=== PATIENT | male | born 1955 | race Caucasian/White ===

== ENCOUNTER 2022-08-14 14:11 | Outpatient (REF) | payer OTHER, SELFPAY ==
[2022-08-14 18:38] LABS: Ferritin 186 ng/mL (20-250)
== END 2022-08-14 14:12 | disposition home or self-care (01) ==
LOC: HO.BBR 14:11
PROVIDERS: PCP Pediatrics; Visit Provider Internal Medicine Hematology & Oncology
DX: E83.110 Hereditary hemochromatosis (principal)
CPT/HCPCS: 36415; 82728

== ENCOUNTER 2023-02-16 08:52 | Outpatient (REF) | payer OTHER, SELFPAY ==
[2023-02-16 11:20] LABS: Ferritin 112 ng/mL (20-250)
== END 2023-02-16 08:53 | disposition home or self-care (01) ==
LOC: HO.BBR 08:52
PROVIDERS: PCP Pediatrics; Visit Provider Internal Medicine Hematology & Oncology
DX: E83.110 Hereditary hemochromatosis (principal)
CPT/HCPCS: 36415; 82728

== ENCOUNTER 2023-08-09 14:02 | Outpatient (REF) | payer OTHER, SELFPAY | END 2023-08-09 14:03 | disposition home or self-care (01) | LOC: HO.BBR 14:02 | PROVIDERS: PCP Pediatrics; Visit Provider Internal Medicine Hematology & Oncology | DX: Z13.89 Encounter for screening for other disorder (principal) ==

== ENCOUNTER 2024-02-11 10:06 | Outpatient (REF) | payer OTHER, SELFPAY | END 2024-02-11 10:07 | disposition home or self-care (01) | LOC: HO.BBR 10:06 | PROVIDERS: PCP Pediatrics; Visit Provider Internal Medicine Hematology & Oncology | DX: Z13.89 Encounter for screening for other disorder (principal) ==

== ENCOUNTER 2024-08-10 09:51 | Outpatient (REF) | payer OTHER, SELFPAY | END 2024-08-10 09:52 | disposition home or self-care (01) | LOC: HO.BBR 09:51 | PROVIDERS: PCP Pediatrics; Visit Provider Internal Medicine Hematology & Oncology | DX: Z13.89 Encounter for screening for other disorder (principal) ==

== ENCOUNTER 2025-02-12 09:44 | Outpatient (REF) | payer OTHER, SELFPAY ==
--- OUTSIDE RECORDS SUMMARY | 2025-02-12 11:54 | XMS_ITS | Encounter Summary ---
Author Organization [facility] Address [address] [place] [address] Care Team Providers Care Testing Consultant Name Role Phone Unavailable Primary Care Provider Unavailabl e Encounter Details Date Type Department Care Team (Latest Contact Info) Description 11/22/2020 Abstract [facility] CONVERSIONS Dental, Provider, DDS Social History Tobacco Use Types Packs/Day Years Used Date Smoking Tobacco: Never Assessed Sex and Gender Information Value Date Recorded Sex Assigned at Male 03/23/2022 10:23 AM EDT Legal Sex Male 10:23 AM EDT Gender Identity Male 03/23/2022 10:23 AM EDT Sexual Orientation Choose not to disclose 2021 10:23 AM EDT documented as of this encounter Plan of Treatment Not on file documented as of this encounter Visit Diagnoses Not on filedocumented in this encounter
--- OUTSIDE RECORDS SUMMARY | 2025-02-12 11:54 | XMS_ITS | Clinical Summary ---
Author Organization [employer] Address [address] [place] [address] Care Team Providers Care Keller Machine Operator Name Role Phone Unavailable Primary Care Provider Unavailabl e Social History Tobacco Use Types Packs/Day Years Used Date Smoking Tobacco: Never Assessed Sex and Gender Information Value Date Recorded Sex Assigned at Male 03/23/2022 10:23 AM EDT Legal Sex Male 10:23 AM EDT Gender Identity Male 03/23/2022 10:23 AM EDT Sexual Orientation Choose not to disclose 2021 10:23 AM EDT Plan of Treatment Health Maintenance Due Date Last Done Comments CT Colonography 1955 Colonoscopy 1955 Colorectal Cancer Screening 1955 Depression Screening 1955 FIT DNA/Cologuard 1955 FIT 1955 FOBT 1955 Lipid Panel 1955 Sigmoidoscopy 1955 Alcohol/Substance Use Screening 1967 Tobacco Screening 1967 DTaP/Tdap/Td Vaccines (1 - Tdap) 11/17/1974 Pneumococcal Vaccine: 50+ Ye ars (1 of 1 - PCV) 11/17/2005 Zoster Vaccines (1 of 2) 11/17/2005 COVID-19 Vaccine (1 - 2023-2 5 season) 2025 Influenza Vaccine (#1) 2025 RSV Patients and Pa tients Aged 60 years or older (1 - 1-dose 75+ series) 11/17/2030 HIB Vaccines Aged Out No longer eligi ble based on patient's age to complete this topic HPV Vaccines Aged Out No longer eligi ble based on patient's age to complete this topic Hepatitis A Vaccines Aged Out No long er eligible based on patient's age to complete this topic Hepatitis B Vaccines Aged Out No long er eligible based on patient's age to complete this topic IPV Vaccines Aged Out No longer eligi ble based on patient's age to complete this topic Meningococcal B Vaccine Aged Out No l onger eligible based on patient's age to complete this topic Meningococcal Vaccine Aged Out No hanny jagdish eligible based on patient's age to complete this topic RSV under 20 months Aged Out No longe r eligible based on patient's age to complete this topic Rotavirus Vaccines Aged Out No longer eligible based on patient's age to complete this topic
--- OUTSIDE RECORDS SUMMARY | 2025-02-12 11:54 | XMS_ITS | Encounter Summary ---
[facility] [address] [place] [address] Care Team Providers Care Utilities Ground Worker Name Role Phone Payal Gonzalez MD Primary Care Provider [phone] Encounter Details Date Type Department Care Team (Late Contact Info) Description 02/12/2025 Telephone Adult [address] [phone] Marichuy Gibson LPN Social History Tobacco Use Types Packs/Day Years Used Date Smoking Tobacco: Former Cigarettes Q uit: 05/24/1983 Smokeless Tobacco: Never Alcohol Use Standard Drinks/Week Comments Not Currently 4 (1 standard drink = 0.6 oz pur e alcohol) Sex and Gender Information Value Date Recorded Sex Assigned at Not on file Legal Sex Male 7:07 PM EST Gender Identity Not on file Sexual Orientation Not on file documented as of this encounter Plan of Treatment Upcoming Encounters Date Type Department Care Team ([facility] [address] Contact Info) Description 02/16/2025 10:00 AM EDT Medication Management Adult [address] [phone] Helen Harmon, PharmD [address] [place] [address] 03/13/2025 11:00 AM EDT Office Visit Adult [address] [phone] Shelley Gonzalez NP [address] [place] [address] documented as of this encounter Visit Diagnoses Not on filedocumented in this encounter Additional Health Concerns Assessment Noted Time PHQ-9 Depression Total Score: 0 02/10/20 25 5:03 PM EDT documented as of this encounter Care Teams Utilities Ground Worker Relationship Specialty Start Date End Date Payal Gonzalez MD [address] [place] [address] PCP - General Internal Medicine 11/07/20 documented as of this encounter
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
--- OUTSIDE RECORDS SUMMARY | 2025-02-12 11:55 | XMS_ITS | Clinical Summary ---
Author Organization [facility] Address [address] [place] [address] Care Team Providers Care Contract Forester Name Role Phone Unavailable Primary Care Provider Unavailabl e Social History Tobacco Use Types Packs/Day Years Used Date Smoking Tobacco: Never Assessed Sex and Gender Information Value Date Recorded Sex Assigned at Not on file Gender Identity Not on file Sexual Orientation Not on file Plan of Treatment Not on file
--- OUTSIDE RECORDS SUMMARY | 2025-02-12 11:55 | XMS_ITS | Clinical Summary ---
Author Organization [facility] Address [address] [place] [address] Care Team Providers Care Marina Dry Dock Manager Name Role Phone Ozzy Gonzalez Primary Care Provider [phone] Allergies No known active allergies Medications amLODIPine (NORVASC) 10 mg tablet Take 10 mg by mouth once a day. Evening 05/03/2022 Active indapamide (LOZOL) 2.5 mg tablet Take 1.25 mg by mouth once a day. Am 04/10/2022 Active losartan (COZAAR) 50 mg tablet Take 50 mg by mouth once a day. evening 04/04/2022 Active morphine ER (MS CONTIN) 15 mg tablet Take 15 mg by mouth 2 times a day as needed. 06/19/2022 Active omeprazole (PriLOSEC) 20 mg capsule Take 20 mg by mouth 2 times a day. 04/10/2022 Active spironolactone (ALDACTONE) 50 mg tablet Take 50 mg by mouth 2 times a day. 04/17/2022 Active sulindac (CLINORIL) 200 mg tablet Take 200 mg by mouth 2 (two) times a day. 02/12/2022 Active Social History Tobacco Use Types Packs/Day Years Used Date Smoking Tobacco: Former Cigarettes Q uit: 1982 Smokeless Tobacco: Never Tobacco Cessation:Counseling Given: Not Answered Alcohol Use Standard Drinks/Week Comments Yes 0 (1 standard drink = 0.6 oz pur e alcohol) 2-3x week Sex and Gender Information Value Date Recorded Sex Assigned at Not on file Legal Sex Male 1:14 PM EST Gender Identity Not on file Sexual Orientation Not on file Last Filed Vital Signs Vital Sign Reading Time Taken Comments Blood Pressure 106/68 09/18/2022 8:49 AM EDT Pulse 74 09/18/2022 8:49 AM EDT Temperature 36.7 C (98 F) 09/18/2022 8:49 AM EDT Respiratory Rate 16 09/18/2022 8:49 AM EDT Oxygen Saturation 96% 09/18/2022 8:49 AM EDT Inhaled Oxygen Concentration - - Weight 109.1 kg (240 lb 9.6 oz) 09/18/2022 6:34 AM EDT Height 167.6 cm (5' 6 ) 09/11/2022 9:54 AM EDT Body Mass Index 38.83 09/11/2022 9:54 AM EDT Plan of Treatment Health Maintenance Due Date Last Done Comments Cologuard 1955 Colon Cancer Screening 1955 Colonoscopy 1955 FOBT / Fit Test 1955 Sigmoidoscopy 1955 Alcohol/Substance Use Screening 05/24/2024 Health Care Proxy Review 05/24/2024 COVID-19 Vaccine ( season) 2025 05/20/2021, 09/04/2020, 08/13/2020 Influenza Vaccine (#1) 2025 , 03/05/2021, 03/05/2021, Additional history exists DTaP,Tdap,and Td Vaccines (3 - Td or Tdap) 11/16/2030 11/16/2020, 07/15/2018, 03/04/2011 RSV Vaccine (60+ years old and patients) (1 - 1-dose 75+ series) 11/17/2030 Zoster Vaccines Completed 05/31/2020, 03/15/2020 Pneumococcal Vaccine: 50+ Years Completed 09/10/2021, 07/30/2014, 03/26/2011 Hepatitis B Vaccines Aged Out No long er eligible based on patient's age to complete this topic Medical Devices Implanted Type Area Academic Coach Device Identifier Shelf Expiration Date Model / Serial / Lot Lens Intraocular Posterior Chamber Anterior Asymmetric Biconvex Acrylic Single Piece [id number] 31.0 [employer]opter Acrysof - [id number] - [id number] Implanted:Qty: 1 on 07/03/2022 by Raphael Bingham MD at [facility] Lens Right: Anterior Chamber DILLON 01/07/2026 SA60AT 31.0 / [id number] / Lens Intraocular Posterior Chamber Anterior Asymmetric Biconvex Acrylic Single Piece [id number] 31.0 Diopter Acrysof - [id number] - [id number] Implanted:Qty: 1 on 07/10/2022 by Raphael Bingham MD at [facility] Lens DILLON 04/28/2027 SA60AT 31.0 / [id number] / Lens Intraocular Posterior Chamber Anterior Asymmetric Biconvex Acrylic Single Piece [id number] 31.0 [employer]opter Acrysof - [id number] - [id number] Implanted:Qty: 1 on 09/18/2022 by Raphael Bingham MD at [facility] Lens DILLON 01/07/2026 SA60AT 31.0 / [id number] / Insurance [facility] STACI BROOKS [id number] Advance Directives Healthcare Agents on File Name Relationship Healthcare Agent [facility] Communication Jeancarlos Grady Brother Health Care Agent Care Teams Marina Dry Dock Manager Relationship Specialty Start Date End Date Ozzy Gonzalez PCP - General Internal Medicine 07/03/22
== END 2025-02-12 09:45 | disposition home or self-care (01) ==
LOC: HO.BBR 09:44
PROVIDERS: PCP Pediatrics; Visit Provider Internal Medicine Hematology & Oncology
DX: Z13.89 Encounter for screening for other disorder (principal)